=== PATIENT | female | born 1955 | race Caucasian/White ===

== ENCOUNTER 2020-10-10 10:56 | Day surgery (SDC) | payer MEDICARE, OTHER ==
[~2020-10-10 10:56] MED LIST: Lactated Ringers 1,000 ML IV SCH; Sodium Chloride 0.9% 10 ML Syringe FLUSH PRN
--- NOTE | 2020-10-10 12:24 | PCM.HPR ---
H & P Addendum review - H & P Addendum Review Date of Original H & P: 09/26/20 Date Reviewed: 10/10/20 (n) Time Reviewed: 12:24 Patient was Examined: No Changes
[2020-10-10] MEDS ORDERED: Propofol 200 MG/20 ML SDV ONE ×2 (12:34→12:36)
[2020-10-10] MEDS ORDERED: Midazolam 1 MG/ML 2 ML SDV ONE ×2 (12:34→12:36)
--- NOTE | 2020-10-10 13:00 | PCM.OPNOTE ---
- General Post-Op/Procedure Note Operative Procedure(s): Colonoscopy Findings: Normal Pre Op Diagnosis: Screening Post-Op Diagnosis: Same Anesthesia Technique: MAC Primary Surgeon: Frank Ervin Anesthesia Provider: Danielle Mcdonough Complications: None Condition: Good
--- NOTE | 2020-10-10 14:25 | OR ---
Date of Procedure: 10/10/2020 PREOPERATIVE DIAGNOSIS: Colon screening. POSTOPERATIVE DIAGNOSIS: Normal colonoscopy. PROCEDURE: Colonoscopy. ANESTHESIA: IV sedation. PROCEDURE IN DETAIL: Patient was brought to the procedure room where she was placed on her left side and IV sedation administered. Digital rectal exam was performed which was normal. Colonoscope was inserted and advanced to the level of the cecum without difficulty. Cecal position was confirmed by identifying the appendiceal lumen and the ileocecal valve. Prep was good and surfaces were well visualized. Upon withdrawing the scope, the ascending, transverse, and descending colon were normal in appearance. Sigmoid colon and rectum were normal. Retroflexion was normal. Air was removed. The scope withdrawn. Patient tolerated the procedure well and returned to recovery in stable condition. Recommend routine colon screening again in 10 years. LONNIE POLK MD /[id number]
[2020-10-10] MEDS ORDERED: Acetaminophen 500 MG Tab PO ONE (14:35)
[2020-10-10 16:10] VITALS: BP 123/68; PULSE 71
== END 2020-10-10 15:14 | disposition home or self-care (01) ==
LOC: LL.SDS 10:56
PROVIDERS: ATTEND Surgery
DX: R19.4 Change in bowel habit (principal); E78.2 Mixed hyperlipidemia; E11.42 Type 2 diabetes mellitus with diabetic polyneuropathy; E03.9 Hypothyroidism, unspecified; I10 Essential (primary) hypertension; F33.0 Major depressive disorder, recurrent, mild; Z79.84 Long term (current) use of oral hypoglycemic drugs; Z79.899 Other long term (current) drug therapy; Z88.0 Allergy status to penicillin; Z88.1 Allergy status to other antibiotic agents; Z98.890 Other specified postprocedural states; Z87.891 Personal history of nicotine dependence
CPT/HCPCS: 00811; A9270-GY; J2250; J2704; J7120; U0002

== ENCOUNTER 2020-10-16 09:24 | Emergency (ER) | payer MEDICARE, OTHER ==
[2020-10-16] MEDS ORDERED: Famotidine 20 MG/2 ML SDV IVPUSH ONE (09:44)
[2020-10-16] MEDS ORDERED: Lactated Ringers 1,000 ML IV ONE (09:44)
[2020-10-16] MEDS ORDERED: Ondansetron 4 MG/2 ML SDV IVPUSH ONE (09:44)
[2020-10-16] MEDS ORDERED: Pantoprazole 40 MG Vial IVPUSH ONE (09:44)
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
[2020-10-16] MEDS: Sodium Chloride 0.9% 10 ML Syringe FLUSH PRN ×3 (10:06→11:14)
[2020-10-16] MEDS ORDERED: Ketorolac 30 MG/ML SDV IVPUSH ONE (10:45)
[2020-10-16] MEDS ORDERED: Tamsulosin 0.4 MG Cap.ER PO ONE (10:46)
[2020-10-16 12:12] VITALS: BP 146/69; PULSE 74
== END 2020-10-16 12:30 | disposition home or self-care (01) ==
LOC: LL.ED 09:24
DX: N13.2 Hydronephrosis with renal and ureteral calculous obstruction (principal); I10 Essential (primary) hypertension; M89.49 Other hypertrophic osteoarthropathy, multiple sites; R10.31 Right lower quadrant pain; K21.9 Gastro-esophageal reflux disease without esophagitis; F41.8 Other specified anxiety disorders; E03.9 Hypothyroidism, unspecified; E87.5 Hyperkalemia; E83.42 Hypomagnesemia; R74.02 Elevation of levels of lactic acid dehydrogenase [LDH]; N28.9 Disorder of kidney and ureter, unspecified; E11.40 Type 2 diabetes mellitus with diabetic neuropathy, unspecified; F41.9 Anxiety disorder, unspecified; F32.9 Major depressive disorder, single episode, unspecified; E66.9 Obesity, unspecified; Z68.31 Body mass index [BMI] 31.0-31.9, adult; Z88.1 Allergy status to other antibiotic agents; Z88.0 Allergy status to penicillin; Z79.84 Long term (current) use of oral hypoglycemic drugs; Z79.899 Other long term (current) drug therapy; Z87.891 Personal history of nicotine dependence
CPT/HCPCS: 36415; 51798; 74022; 74176; 80053; 81001; 82150; 83605; 83690; 83735; 84550; 85025; 85610; 85730; 87086; 96374; 96375; 99284-25; A9270-GY; C9113; J1885; J2405; J3490; J7120